=== PATIENT | female | born 1975 | race Caucasian/White ===

== ENCOUNTER 2017-10-31 20:07 | Outpatient (CLI) | payer OTHER ==
[~2017-10-31] VITALS: Ht 152.4 cm; Wt 71.0 kg
[2017-10-31 20:34] VITALS: BP 107/60; PULSE 83; RESP 18
[2017-10-31 20:35] VITALS: Ht 152.4 cm; Wt 71.0 kg
[2017-10-31] MEDS ORDERED: TERBUTALINE 1 MG/ML INJ SC STA (21:16)
[2017-10-31] MEDS ORDERED: LACTATED RINGER'S 1,000 ML IV* SCH (21:30)
[2017-10-31] MEDS ORDERED: LACTATED RINGER'S 1,000 ML IV ONE (21:30)
--- NOTE | 2017-10-31 21:56 | RADRPT ---
PROCEDURE: US biophysical profile. CLINICAL INDICATION: labor at 26 weeks gestational age. TECHNIQUE: Multiple sonographic images of the uterus were obtained. Transvaginal sonograp hy of the cervix was also performed. The images were reviewed on a PACS workstation. COMPARISON: No prior studies are available for comparison. FINDINGS: There is a single live intrauterine gestation. heart rate is 154 beats per minute. The position is cephalic/variable. The placenta is anterior grade 1 with no abruption or previa. The ELGIN is 12.3 cm. (Normal = 5-20 cm.) Cervical length is 3.3 cm. Breathing Movement: 2 Gross Body Movement: 2 Tone: 2 Qualitative Amniotic Fluid Volume: 2 TOTAL: 8 IMPRESSION: 1. The biophysical score is 8/8. 2. Cervical length is 3.3 cm. RPTAT: QQ .Hua Quintanilla MD, Date Time Electronically viewed and signed by .Hua Quintanilla MD, on 10/31/2017 21:55 .R/
[2017-10-31] MEDS ORDERED: CALC600T5 PO (22:08)
[2017-10-31] MEDS ORDERED: FERR325T5 PO (22:08)
[2017-10-31] MEDS ORDERED: FOLI0.8C PO (22:08)
[2017-10-31] MEDS ORDERED: PREN1TAB79 PO (22:08)
[2017-10-31 22:19] LABS: BASOPHILS % 0.3 % (0.0-2.0); EOSINOPHILS # 0.1 10^3/ul (0.0-0.5); EOSINOPHILS % 0.8 % (0.0-7.0); HEMATOCRIT 31.5 % (37.0-47.0); HEMOGLOBIN 11.5 g/dl (12.0-16.0); LYMPHOCYTES # 2.1 10^3/ul (0.8-2.9); MEAN CORPUSCULAR HEMOGLOBIN 34.4 pg (29.0-33.0); MEAN CORPUSCULAR HGB CONC 36.5 g/dl (32.0-37.0); MEAN CORPUSCULAR VOLUME 94.3 fl (82.0-101.0); MEAN PLATELET VOLUME 10.4 fl (7.4-10.4); MONOCYTE # 0.6 10^3/ul (0.3-0.9); MONOCYTES % 4.7 % (0.0-11.0); NEUTROPHIL # 9.2 10^3/ul (1.6-7.5); NEUTROPHILS % 75.1 % (39.0-77.0); PLATELET COUNT 237 10^3/UL (140-415); RED BLOOD COUNT 3.34 10^6/ul (4.20-5.40); WHITE BLOOD COUNT 12.3 10^3/ul (4.8-10.8)
[2017-10-31 22:42] LABS: ADD UMIC YES; UR ASCORBIC ACID NEGATIVE (NEGATIVE); UR BACTERIA FEW /HPF (NONE SEEN); UR BILIRUBIN (Dip) NEGATIVE (NEGATIVE); UR BLOOD (Dip) 1+ mg/dL (NEGATIVE); UR CLARITY CLEAR (CLEAR); UR COLOR YELLOW (YELLOW); UR GLUCOSE (Dip) NEGATIVE (NEGATIVE); UR KETONES (Dip) NEGATIVE (NEGATIVE); UR LEUKOCYTE ESTERASE (Dip) NEGATIVE Leu/ul (NEGATIVE); UR NITRITE (Dip) NEGATIVE (NEGATIVE); UR RBC 1 /HPF (0-5); UR SPECIFIC GRAVITY (Dip) 1.013 (1.003-1.030); UR TOTAL PROTEIN (Dip) NEGATIVE (NEGATIVE); UR UROBILINOGEN (Dip) NEGATIVE (NEGATIVE)
[2017-11-01 00:31] LABS: RUPTURE FETAL MEMBRANES NEGATIVE (NEGATIVE)
--- NOTE | 2017-11-01 02:12 | PN ---
Triage Information Date/Time 11/01/17 Reason for visit: SROM Weeks of Gestation 26w6d /Para A2(x1sab x1iab) Diabetes: none Hypertention: none Objective Vital Signs Date Time Temp Pulse Resp B/P Pulse Ox O2 Delivery O2 Flow Rate FiO2 10/31/17 20:34 98.6 83 18 107/60 Room Air Intake and Output 10/31/17 10/31/17 11/01/17 15:00 23:00 07:00 Intake Total 1000 ml Balance 1000 ml Heart Rate: 140's Contractions: < 5 Minutes Apart Exam ROM plus neg spec exam no pooling Results/Medications Result Diagram: 10/31/172138 Results 24 hrs Laboratory Tests Test 10/31/17 21:39 10/31/17 21:50 White Blood Count 12.3 H Red Blood Count 3.34 L Hemoglobin 11.5 L Hematocrit 31.5 L Mean Corpuscular Volume 94.3 Mean Corpuscular Hemoglobin 34.4 H Mean Corpuscular Hemoglobin Concent 36.5 Red Cell Distribution Width 13.0 Platelet Count 237 Mean Platelet Volume 10.4 Neutrophils % 75.1 Lymphocytes % 17.0 Monocytes % 4.7 Eosinophils % 0.8 Basophils % 0.3 Nucleated Red Blood Cells % 0.0 Neutrophils # 9.2 H Lymphocytes # 2.1 Monocytes # 0.6 Eosinophils # 0.1 Basophils # 0.0 Nucleated Red Blood Cells # 0.0 Membranes Rupture NEGATIVE Urine Color YELLOW Urine Clarity CLEAR Urine pH 6.0 Urine Specific [place] 1.013 Urine Ketones NEGATIVE Urine Nitrite NEGATIVE Urine Bilirubin NEGATIVE Urine Urobilinogen NEGATIVE Urine Leukocyte Esterase NEGATIVE Urine Microscopic RBC 1 Urine Microscopic WBC 1 Urine Bacteria FEW A Urine Hemoglobin 1+ H Urine Glucose NEGATIVE Urine Total Protein NEGATIVE Medications IV hydration and x1 terb Imaging Results BPP8/8 AFI12.3 CVL 3.3 Disposition: Discharge Assessment/Plan IUP 26w6d R/o PPROM NIL plan d/s home f/u in her ob clinic RTH prn with routine labor instructions GURVINDER ANTONIO MD Nov 01, 2017 02:12
--- NOTE | 2017-11-01 06:38 | TRIAGE ---
OB Triage Datetime Report Generated by CPN: 11/01/2017 06:38 Datetime: 11/01/2017 01:20 Stage of : OB Triage Assessment Type: Triage Datetime: 11/01/2017 01:19 Stage of : OB Triage Labor Evaluation Frequency: None noted or palpated Monitor Mode: External Resting Tone [place]: Relaxed Heart Rate FHR Baseline Rate: 140 Monitor Mode: External US FHR Baseline Changes: No Baseline Change Variability: Moderate 6-25 bpm Accelerations: 15X15 Decelerations: None Category: Category I Pain Assessment Pain Scale: 1 Pain Presence: Intermittent Pain Type: Cramping Pain Location: Abdomen Pain Relief Measures: Comfort Measures Pain Assessment Comments: Pt reports less pain. Ok to go home. Datetime: 11/01/2017 01:00 Stage of : OB Triage Labor Evaluation Frequency: Occasional/Irritability Monitor Mode: External Duration (sec)2399: 20-60 Quality: Mild Pattern: Normal: <= 5 Contractions in 10 Minutes Resting Tone [place]: Relaxed Heart Rate FHR Baseline Rate: 140 Monitor Mode: External US Variability: Moderate 6-25 bpm Accelerations: 15X15 Decelerations: None Category: Category I Datetime: 11/01/2017 00:00 Stage of : OB Triage Labor Evaluation Frequency: Occasional Monitor Mode: External Duration (sec)2399: 40-50 Quality: Mild Pattern: Normal: <= 5 Contractions in 10 Minutes Resting Tone [place]: Relaxed Heart Rate FHR Baseline Rate: 135 Monitor Mode: External US Variability: Moderate 6-25 bpm Accelerations: 15X15 Decelerations: None Category: Category I Datetime: 10/31/2017 23:13 Stage of : OB Triage Pain Assessment Pain Scale: 4 Pain Presence: Intermittent Pain Type: Cramping Pain Location: Abdomen Pain Assessment Comments: Pt states pain the same after IV hydration. Terbutaline given. Datetime: 10/31/2017 23:00 Stage of : OB Triage Labor Evaluation Frequency: Occasional Monitor Mode: External Duration (sec)2399: 40-60 Quality: Mild Pattern: Normal: <= 5 Contractions in 10 Minutes Resting Tone [place]: Relaxed Heart Rate FHR Baseline Rate: 140 Monitor Mode: External US Variability: Moderate 6-25 bpm Accelerations: 15X15 Decelerations: None Category: Category I Datetime: 10/31/2017 22:22 Stage of : OB Triage Temperature Route: Oral Datetime: 10/31/2017 22:20 Stage of : OB Triage Datetime: 10/31/2017 22:11 Nitrazine: Negative Datetime: 10/31/2017 22:00 Stage of : OB Triage Labor Evaluation Frequency: Occasional Monitor Mode: External Duration (sec)2399: 40-70 Quality: Mild Pattern: Normal: <= 5 Contractions in 10 Minutes Resting Tone [place]: Relaxed Heart Rate FHR Baseline Rate: 150 Monitor Mode: External US Variability: Moderate 6-25 bpm Accelerations: 15X15 Decelerations: None Comments: Period of tachycardia @160-180BPM with minimal variability. Terbutaline not given at this time. Datetime: 10/31/2017 21:24 Vaginal Exam Membrane Status: Intact Datetime: 10/31/2017 21:00 Stage of : OB Triage Labor Evaluation Frequency: 3-10 Monitor Mode: External Duration (sec)2399: 40-70 Quality: Mild Pattern: Normal: <= 5 Contractions in 10 Minutes Resting Tone [place]: Relaxed Heart Rate FHR Baseline Rate: 135 Monitor Mode: External US Variability: Moderate 6-25 bpm Accelerations: 15X15 Decelerations: None Category: Category I Datetime: 10/31/2017 20:32 Labor Evaluation Frequency: none Monitor Mode: External Pattern: Normal: <= 5 Contractions in 10 Minutes Resting Tone [place]: Relaxed Heart Rate FHR Baseline Rate: 145 Monitor Mode: External US FHR Baseline Changes: No Baseline Change Comments: placed on efm Datetime: 10/31/2017 20:31 Maternal Assessment Level of Consciousness: Fully Conscious DTR's/Clonus: DTRs 2+; No Clonus Headache: Denies Blurred Vision: No Respiratory Effort: Unlabored; Regular Rhythm; Equal Expansion Breath Sounds, Left: Clear and Equal Breath Sounds, Right: Clear and Equal Nausea/Vomiting: Denies RUQ Epigastric Pain: Denies Facial Edema: None Fall Risk Assessment History of Falling: (0) No Secondary Diagnosis: (0) No Ambulatory Aid: (0) Bedrest/Nurse Assist IV Therapy: (0) No Gait: (0) Normal/Bedrest/Immobile Mental Status: (0) Oriented to Own Ability Fall Score: 0 Fall Risk Score Definition: No Risk: No action required Datetime: 10/31/2017 20:30 Time of Arrival: 10/31/2017 19:56 EGA: 26.6 Arrived By: Ambulatory Arrived From: Home Chief Complaint: leaking fluid/pain in lower abdomen Movement: Present Contractions: Denies/Absent Rupture of Membranes: Unsure Vaginal Bleeding: None Vaginal Discharge: Denies Recent Sexual Intercouse: Denies Abdominal Trauma: Not Applicable Patient Complaints: None Time Provider Notified: 10/31/2017 21:15 Provider Notified: Initial Plan: efm Datetime: 10/31/2017 20:29 Stage of : OB Triage Temperature Route: Oral Pain Assessment Pain Scale: 4 Pain Presence: Intermittent Pain Type: Cramping Pain Location: Abdomen Pain Relief Measures: Comfort Measures Datetime: 10/31/2017 20:28 Stage of : OB Triage
== END 2017-11-01 01:38 | disposition home or self-care (01) ==
LOC: OBT 20:07 → L-D 20:09 → OBT 11-01 01:38
PROVIDERS: ATTEND Obstetrics & Gynecology
DX: O42.02 Full-term premature rupture of membranes, onset of labor within 24 hours of rupture (principal); O09.522 Supervision of elderly multigravida, second trimester; Z3A.26 26 weeks gestation of pregnancy
CPT/HCPCS: 36415; 76817; 76818; 81001; 84112; 85025; 87086; 96360; 96361; 96372; J3105; J7120; Z7500; G0463

== ENCOUNTER 2017-12-20 22:25 | Outpatient (CLI) | END 2017-12-21 02:40 | disposition home or self-care (01) ==

== ENCOUNTER 2018-01-09 22:15 | Inpatient (IN) | END 2018-01-12 18:45 | disposition home or self-care (01) | DRG 775 ==